=== PATIENT | female | born 1960 | race Caucasian/White ===

== ENCOUNTER 2023-03-15 08:40 | Outpatient (AMB) | payer BC, SELFPAY ==
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
== END 2023-03-15 10:28 | disposition home or self-care (01) ==
PROVIDERS: PCP Internal Medicine; Referring Provider Internal Medicine; Visit Provider Neurological Surgery
DX: M50.10 Cervical disc disorder with radiculopathy, unspecified cervical region (principal)
CPT/HCPCS: 99204

== ENCOUNTER → 2023-03-15 08:40 | Outpatient (BNVA) | payer BC, SELFPAY | PROVIDERS: PCP Internal Medicine; Visit Provider Neurological Surgery ==

== ENCOUNTER → 2023-05-17 14:35 | Outpatient (BNVA) | payer BC, SELFPAY | PROVIDERS: PCP Internal Medicine; Visit Provider Neurological Surgery ==

== ENCOUNTER 2023-07-18 06:41 | Day surgery (SDC) | payer BC, SELFPAY ==
[2023-07-13 12:19] VITALS: BP 142/87; PULSE 83; RESP 20; O2SAT 97; BMI 26.5
--- NOTE | 2023-07-13 12:31 | HO.ANESPROP2 ---
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 PPI controls Murmur as a child. Resolved spontaneously s/p anterior cervical surgery 20 years ago. No issues but severe gagging post op ~ 24 hours r/t nerve PMFSH Active Problems Active Problems: All Active Problems (Updated 07/13/23 @ 12:15 by Diya Briggs RN) Cervical radiculopathy due to intervertebral disc disorder (Acute) Past Medical History Medical History Seasonal allergies Family history of cardiovascular disease Basal cell carcinoma History of cardiac murmur as a child Cervical radiculopathy Ductal carcinoma in situ of left breast Insomnia Anxiety Depression HTN (hypertension) GERD (gastroesophageal reflux disease) Family History Family history of problems with anesthesia: No Surgical History Surgical History History of esophagogastroduodenoscopy (EGD) Hx of umbilical hernia repair Hx of hysterectomy History of meniscectomy of left knee Hx of lumbar discectomy History of lumpectomy of left breast H/O colonoscopy History of Problems with Anesthesia: No Social History Social History (Updated 07/11/23 @ 15:33 by Diya Briggs RN) Are you a primary certified caregiver to a significant other at home: No Do you presently have visiting nurse or other home services: No Patient Tobacco Use Status: Never used Tobacco Use of substances other than those prescribed or required for medical reasons: No Have you been hit, kicked, punched, or otherwise hurt by someone within the past year? If so, by whom?: No Advance Directives: No Advance Directives Information Provided: Yes Advance Directives on File: No Recently lost weight without trying: No Eating poorly because of decreased appetite: No Nutrition Risks: No Nutritional Risk Poor oral hygiene: No Meds Allergies Allergy/AdvReac Type Severity Reaction Status Date / Time ibuprofen AdvReac Intermediate due to GI Verified 07/18/23 07:17 effects-has stomach polyps Home Medications Medication Instructions Recorded Confirmed Last Taken Type albuterol sulfate 90 mcg/actuation 2 puff inhalation Q4H PRN 07/11/23 07/13/23 Unknown History aerosol inhaler Shortness Of Breath amlodipine 10 mg tablet 10 mg PO QAM 07/11/23 07/13/23 07/18/23 05:00 History magnesium oxide 500 mg tablet 500 mg PO QAM 07/11/23 07/13/23 07/17/23 History trazodone 50 mg tablet 50 mg PO BEDTIME PRN Insomnia 07/11/23 07/13/23 07/17/23 History venlafaxine 150 mg 150 mg PO QAM 07/11/23 07/13/23 07/18/23 05:00 History capsule,extended release 24 hr venlafaxine 75 mg capsule,extended 75 mg PO QAM 07/11/23 07/13/23 07/18/23 05:00 History release 24 hr calcium carbonate 500 mg-vitamin 1 tab PO DAILY 07/13/23 07/13/23 07/17/23 History D3 3.125 mcg (125 unit) tablet methocarbamol 500 mg tablet 500 mg PO DAILY PRN muscle spasms 07/13/23 07/13/23 Unknown History multivitamin 1 tab PO DAILY 07/13/23 07/13/23 07/17/23 History omeprazole 20 mg capsule,delayed 20 mg PO QAM 07/13/23 07/13/23 07/18/23 05:00 History release aspirin 81 mg tablet 81 mg PO DAILY 07/18/23 07/18/23 07/10/23 History Exam Height,Weight and Vital Signs: Height 5 ft 3.5 in Weight 68.946 kg Last Vital Signs Pulse 83 07/13/23 12:19 Resp 20 07/13/23 12:19 BP 142/87 H 07/13/23 12:19 Pulse Ox 97 07/13/23 12:19 O2 Del Method Room Air 07/13/23 12:19 Pertinent Lab Results Pertinent Lab Results: CBC and BMP 11/2022 from outside facility WNL Narrative Narrative: EKG 11/2022 NSR Airway Mallampati Class: II TM Dist: >3cm Neck ROM: Limited Heart: RRR Lungs: CTAB Assessment and Plan Assessment Anesthesia Assessment: Anesthesia Plan Discussed and PAT Visit Final Anesthetic Review Family History of Problems with Anesthesia: No History of Problems with Anesthesia: No Documented by User: Lorenzo Carr MD 07/18/23 09:50 PMFSH Past Medical History Medical History Seasonal allergies Family history of cardiovascular disease Basal cell carcinoma History of cardiac murmur as a child Cervical radiculopathy Ductal carcinoma in situ of left breast Insomnia Anxiety Depression HTN (hypertension) GERD (gastroesophageal reflux disease) Surgical History Surgical History History of esophagogastroduodenoscopy (EGD) Hx of umbilical hernia repair Hx of hysterectomy History of meniscectomy of left knee Hx of lumbar discectomy History of lumpectomy of left breast H/O colonoscopy Social History Social History (Updated 07/11/23 @ 15:33 by Diya Briggs RN) Are you a primary certified caregiver to a significant other at home: No Do you presently have visiting nurse or other home services: No Patient Tobacco Use Status: Never used Tobacco Use of substances other than those prescribed or required for medical reasons: No Have you been hit, kicked, punched, or otherwise hurt by someone within the past year? If so, by whom?: No Advance Directives: No Advance Directives Information Provided: Yes Advance Directives on File: No Recently lost weight without trying: No Eating poorly because of decreased appetite: No Nutrition Risks: No Nutritional Risk Poor oral hygiene: No Meds Allergies Allergy/AdvReac Type Severity Reaction Status Date / Time ibuprofen AdvReac Intermediate due to GI Verified 07/18/23 07:17 effects-has stomach polyps Home Medications Medication Instructions Recorded Confirmed Last Taken Type albuterol sulfate 90 mcg/actuation 2 puff inhalation Q4H PRN 07/11/23 07/13/23 Unknown History aerosol inhaler Shortness Of Breath amlodipine 10 mg tablet 10 mg PO QAM 07/11/23 07/13/23 07/18/23 05:00 History magnesium oxide 500 mg tablet 500 mg PO QAM 07/11/23 07/13/23 07/17/23 History trazodone 50 mg tablet 50 mg PO BEDTIME PRN Insomnia 07/11/23 07/13/23 07/17/23 History venlafaxine 150 mg 150 mg PO QAM 07/11/23 07/13/23 07/18/23 05:00 History capsule,extended release 24 hr venlafaxine 75 mg capsule,extended 75 mg PO QAM 07/11/23 07/13/23 07/18/23 05:00 History release 24 hr calcium carbonate 500 mg-vitamin 1 tab PO DAILY 07/13/23 07/13/23 07/17/23 History D3 3.125 mcg (125 unit) tablet methocarbamol 500 mg tablet 500 mg PO DAILY PRN muscle spasms 07/13/23 07/13/23 Unknown History multivitamin 1 tab PO DAILY 07/13/23 07/13/23 07/17/23 History omeprazole 20 mg capsule,delayed 20 mg PO QAM 07/13/23 07/13/23 07/18/23 05:00 History release aspirin 81 mg tablet 81 mg PO DAILY 07/18/23 07/18/23 07/10/23 History Assessment and Plan Final Anesthetic Review NPO: Yes ASA Class: II Final Preanesthetic Review: No Changes in Pt Med Stat, Meds/Allgs Chart Reviewed, Consent Obtained/Reviewed and Anes Risks/Benef Reviewed Patient Risk: Low Procedure Risk: Intermediate Anesthetic Plan Anesthetic Plan: GA Disposition: Standard PACU
[2023-07-18] VITALS (10 sets, daily range): BP systolic 119–136; BP diastolic 73–83; PULSE 84–95; RESP 8–23; TEMP 36.1–36.9; O2SAT 94–98; BMI 26.3
--- NOTE | ~2023-07-18 | FL_ITS ---
EXAMINATION: XR FLUOROSCOPY WITH IMAGES CLINICAL INFORMATION: C5-C6 anterior cervical discectomy with fusion COMPARISON: None available. TECHNIQUE: Fluoroscopy Supervised By: Dr. Lezama Fluoroscopy Time: 0.0 minutes. Cumulative Dose: 1.90 mGy. DAP: 0.389 Gycm2. Images: 3. FINDINGS: 3 views demonstrate ACDF at C5-C6. Also seen is an anterior plate and screws at C7-T1. No evidence of hardware complication. FL/FL guidance in OR IMPRESSION: Fluoroscopic guidance provided to Dr. Lezama for ACDF.
--- NOTE | 2023-07-18 07:00 | MHC.SHP ---
Pre-Procedural Eval Section A - 24 Hr Update-Section A only Date of Service: 07/18/23 The patient is an INPATIENT: No Changes since office visit: No Cold of Flu in the past 2 weeks, No New Medical Problems, No Changes in Medication and No Patient answered all questions The patient has been examined within 24 hours of the surgical procedure. The History & Physical has been completed within 30 days and I have reviewed it.: No Section B - Complete if H&P > 30 days Chief Complaint: Cervical disc disorder with radiculopathy, Allergies: Allergies Allergy/AdvReac Type Severity Reaction Status Date / Time ibuprofen AdvReac Intermediate due to GI Verified 07/13/23 12:14 effects-has stomach polyps Review of Systems Sugical H&P ROS: Negative: Constitution, Cardiovascular, Respiratory, Neurological, Psychiatric, Hem-Onc, Allergic/Immunologic, Gastrointestinal, Genitourinary, Musculoskeletal, Integumentary, Endocrine and Eyes/Ears/Nose/Throat Exam Surgical H&P Exam: Not Evaluated: HEENT, Not Evaluated: Heart, Not Evaluated: Lungs, Not Evaluated: Extremities, Not Evaluated: Abdomen, Not Evaluated: Skin and Not Evaluated: Neurological Plan Diagnosis/Plan: Unchanged C5-6 anterior cervical diskectomy and fusion Time Spent With Patient Time: Total time managing care of this patient today __9__ minutes.
[2023-07-18] MEDS: methocarbamoL 750 MG TABLET PO (07:26)
[2023-07-18] MEDS: Gabapentin 300 MG CAPSULE PO (07:26)
[2023-07-18] MEDS: Lactated Ringers 1,000 ML 100 ML IVCONT (07:33)
--- NOTE | 2023-07-18 12:06 | W.PM.OPN ---
Operative Note Operative Note Date of Service: 07/18/23
--- NOTE | 2023-07-18 12:13 | PM.DS ---
DS: Providers Provider Date of Service: 07/18/23 Date of discharge: 07/18/23 Primary care physician: Milind Monreal DO, MD Admitting clinician: Domenico Lezama DS: Diagnosis Discharge Diagnosis (1) Cervical radiculopathy due to intervertebral disc disorder: Status: Acute DS: Summary Time Attestation Discharge coordination time: Less than 30 minutes Quality: Safe Use of Opioids Does Pt have an Active Cancer Diagnosis on the Problem List?: No Quality: Stroke Does the patient have a stroke diagnosis?: No Physical Exam Vital Signs: Vital Signs: Last Vital Signs Temp 98.5 F 07/18/23 07:17 Pulse 95 07/18/23 07:17 Resp 16 07/18/23 07:17 BP 136/80 07/18/23 07:17 Pulse Ox 98 07/18/23 07:17 O2 Del Method Room Air 07/18/23 07:17 BMI result Body Mass Index 26.3 Discharge Plan Discharge Patient Disposition: Home, Self-Care Referrals: Milind Monreal DO, MD [Primary Care Provider] - 1 Week Discharge Medications: New docusate sodium [Colace] 100 mg capsule 100 mg PO BID Qty: 20 0RF oxycodone 5 mg tablet 5 mg PO Q4H PRN (Reason: pain) Qty: 30 0RF Rx Instructions: Partial Fill upon patient request. Continued venlafaxine 75 mg capsule,extended release 24hr 75 mg PO QAM trazodone 50 mg tablet 50 mg PO BEDTIME PRN (Reason: Insomnia) venlafaxine 150 mg capsule,extended release 24hr 150 mg PO QAM amlodipine 10 mg tablet 10 mg PO QAM magnesium oxide 500 mg Tablet 500 mg PO QAM albuterol sulfate 90 mcg/actuation HFA aerosol inhaler 2 puff inhalation Q4H PRN (Reason: Shortness Of Breath) multivitamin Tablet 1 tab PO DAILY methocarbamol 500 mg tablet 500 mg PO DAILY PRN (Reason: muscle spasms) calcium carbonate-vitamin D3 500 mg-3.125 mcg (125 unit) Tablet 1 tab PO DAILY omeprazole 20 mg Capsule,Delayed Release(Dr/Ec) 20 mg PO QAM aspirin 81 mg Tablet 81 mg PO DAILY Discharge Orders: Discharge Order (Routine); Ordered 07/18/23 Ordered By: Yonny Posada Diet: Advance to usual diet Activity on Discharge: As tolerated Activity Restrictions/Additional Instructions: After your spinal surgery we ask you to observe the following restrictions/guidelines: Activity: It is normal to feel some discomfort as you increase your activity, but that will improve with time. We ask you avoid heavy lifting or acitivities that cause pain. As a general rule, 8lbs is a safe limit for lifting right after surgery. Walk as much as you feel comfortable but not to exhaustion. You will feel extra tired the first few days after surgery. Stay well hydrated. It is OK to walk up and down stairs You may return to driving when you are off narcotics (such as vicodin, oxycodone, dilaudid, etc), and you are back to normal functional capacity. If you have any concerns please check with office before driving. Return to work is specific to each patient and each surgery, so please speak with your doctor/PA at first follow up. Please bring paperwork such as FMLA at that time if you need it filled out. Medications: For optimum pain control, it is best to start with a combination of 500 mg of Tylenol every 4 hours with 600 mg of Motrin every 8 hours, and use narcotics as needed in between for breakthrough pain. We will give you a short supply of narcotics after surgery (usually one weeks worth). If you need more please call the office but do not use more than prescribed. You will need to give our office 48 hours notice if you need narcotics refilled and we do not fill narcotics on weekends or evenings. If you are on a narcotic, it is a good idea to take a stool softener such as colace or senna to avoid constipation If you take blood thinner such as aspirin, Plavix, Coumadin, Effient, Eliquis etc for conditions such as Afib, DVT, Pulmonary embolus, coronary disease, stents etc please speak with your surgeon about specific details as to when you can resume these medications. You can resume NSAIDs on post op day 1 (eg: Motrin, Naproxen, etc). Follow up: Please call the office, , after surgery to arrange a 3 week follow up for wound check. Wound Care: You may remove your dressing on the first day after surgery. ?You may ?leave open to air. Please do not remove the steri strips underneath. they will fall off on their own in one week. IT IS NORMAL FOR THE WOUND TO OOZE OR BE BLOODY FOR A FEW DAYS AFTER SURGERY. ?IF THIS HAPPENS JUST PLACE NEW DRESSING OVER IT TO AVOID STAINING CLOTHES. You may shower on post op day # 1 We ask that you do not let the water soak the wound. If it does get wet, just towel dry lightly. Please do not scrub your incision or place any type of chemical/ointment on the wound. No tub baths, pools or jacuzzis for one month. If you have any leaking or redness from your wound, or fevers, please call office
--- NOTE | 2023-07-18 12:14 | P.OP_ITS ---
Operative Note Operative Note Date of Service: 07/18/23 Narrative: Preoperative Diagnosis: Bilateral cervical radiculopathy Procedure: C5-C6 Anterior discectomy, arthrodesis and implantation cage ; C5-C6 anterior instrumentation ; local autograft; microscope Informed Consent was obtained for this operation. I have explained the nature, purpose and benefits of the operation. I have discussed the risks and benefit of the operation including possible complications or adverse events with patient/family. Alternative(s) were discussed with the patient with their relative benefits and risks as well as the consequences of not accepting the operation were included in obtaining consent. Surgeon: PRINCE NIETO MD, PHD Procedure Assisted By: aguila Morocho Description of Procedure: This patient is radiculopathy. She has a history of C6-7 anterior diskectomy and fusion in another institution. An MRI shows degenerative disc disease C5-6 with bilateral foraminal stenosis. She was offered an anterior diskectomy fusion C5-6 to treat adjacent degenerative disc disease. The procedure complications were explained. The patient was consented. The patient was brought to the operating room and endotracheally intubated. The patient was put in supine position with slight extension of the neck. Prep and drape was done followed by timeout. A mid cervical incision was made followed by opening of the platysma. The prevertebral fascia was reached following the natural planes while the physician assistant director of residence life provided manual retraction. The prevertebral fascia was opened to expose the disc space. A spinal needle was placed in the disk space to confirm the correct level with xray. The longus colli muscles were released bilaterally and a self retaining retractor was inserted. Two Walker pins were placed in the C5 and C6 vertebral bodies and distraction was give over the i nterspace. The discectomy was completed toward the posterior annulus of the disc. The microscope was brought in. The remainder of the discectomy was completed. Significant hypertrophied posterior ligament was encountered. The posterior ligament was opened and resected to expose the underlying dura. Osteophytes were resected from the body of C5-C6 and saved for autograft. Bilateral foraminotomies were done. The endplates were prepared after which a 6 mm cage filled with autograft was inserted into the disc space. A separate attached plate was locked down with 2 x 14 mm screws as anterior inst rumentation. Final x-rays in AP and lateral projection showed a satisfactory position of the implant. The physician assistant director of residence life took over. The Walker pin was removed. Hemostasis was done. He closed the incision in 2 layers with a 3-0 Vicryl. Steri-Strips used to approximate incision. An OpSite with Tegaderm was used to cover the incision. All sponge and needle counts were correct. Patient was extubated and transported in stable is to recovery room. Anesthesia: General Estimated Blood Loss (ml): 40 mL Duration of Surgery: 60 minutes Postoperative Plan: Discharge home Complications: None
[2023-07-18] MEDS: fentaNYL citrate/PF 100 MCG/2 ML VIAL 50 MCG IVPUSH (13:01)
[2023-07-18] MEDS: oxyCODONE HCl Immed Release 5 MG TABLET PO (13:07)
--- NOTE | 2023-07-18 15:00 | PHA.MEDREC ---
Pharmacy Consult ? Medication Reconciliation Pharmacy has reviewed the medication reconciliation completed by nursing. Tammie Molina, ShannonD
== END 2023-07-18 14:05 | disposition home or self-care (01) ==
PROVIDERS: PCP Internal Medicine; Visit Provider Neurological Surgery
PROC: (CPT 22551; principal; 2023-07-18 10:10)
DX: M50.122 Cervical disc disorder at C5-C6 level with radiculopathy (principal); Z79.82 Long term (current) use of aspirin; Z79.899 Other long term (current) drug therapy; Z88.8 Allergy status to other drugs, medicaments and biological substances
CPT/HCPCS: 22551; 22853; 20936; 22845; C1713; J0131; J0690; J1100; J2250; J2405; J2704; J3010

== ENCOUNTER → 2023-07-18 06:41 | Outpatient (BNV) | payer BC, SELFPAY | PROVIDERS: PCP Internal Medicine; Visit Provider Neurological Surgery | DX: M50.122 Cervical disc disorder at C5-C6 level with radiculopathy (principal) | CPT/HCPCS: 20936; 22551; 22845; 22853; 99499 ==

== ENCOUNTER 2023-08-08 13:11 | Outpatient (AMB) | payer BC, SELFPAY ==
--- NOTE | 2023-08-08 13:14 | HO.SPINEOV ---
Intake Intake Visit Reasons: 1st post op Intake Note: Ms. Bautista is here today for 1st post op. Strike Operations Officer Required: No Allergies ibuprofen Adverse Reaction (Intermediate, Verified 07/18/23 07:17) due to GI effects-has stomach polyps Assessment & Plan Assessment & Plan (1) H/O cervical spine surgery: Code(s): Z98.890 - Other specified postprocedural states Plan Procedure: C5-C6 ACDF Agustina comes in today for her 1st postoperative visit. She reports she is very satisfied with the surgery and feels much better than she did pre-operatively. The patient reports she is up walking around and completing the majority of her ADLs. She does report that she still has quite a bit of posterior neck discomfort and some dull tenderness to her bilateral shoulders. She reports that she has good relief with acetaminophen for pain control. She inquired about postoperative return to activity instructions. We extensively discussed the stepwise approach to gradually returning to normal function. No new neurological deficits. Sensation grossly intact. Patient is able to ambulate well, rises from a seated position without difficulty. Anterior incision site is closed, well healing, with no signs of drainage. We will follow-up with the patient in 6 weeks for his 2nd postoperative visit. At that time we will get x-rays to review with the patient. Grabiel Lezama MD,PhD [facility] Coding Level of Care Code Global (11443) Diagnoses H/O cervical spine surgery Z98.890
== END 2023-08-08 13:26 | disposition home or self-care (01) ==
PROVIDERS: PCP Internal Medicine; Visit Provider Physician Assistant
DX: Z98.890 Other specified postprocedural states (principal)
CPT/HCPCS: 99024

== ENCOUNTER 2023-08-08 13:11 | Outpatient (REF) | payer BC, SELFPAY | END 2023-08-08 13:12 | disposition home or self-care (01) | LOC: HO.HOSX 13:11 | PROVIDERS: PCP Internal Medicine; Visit Provider Physician Assistant | DX: Z13.89 Encounter for screening for other disorder (principal) ==

== ENCOUNTER 2023-09-19 13:21 | Outpatient (REF) | payer BC, SELFPAY ==
--- NOTE | ~2023-09-19 | XR_ITS ---
EXAMINATION: XR CERVICAL SPINE CLINICAL INFORMATION: Postprocedural states. COMPARISON: Fluoroscopic images O.R. of 07/18/2023 for ACDF at C5-C6. MR cervical spine 04/27/2022. TECHNIQUE: 4 views of the cervical spine inclusive of flexion and extension views. FINDINGS: Instrumented anterior fusion at C6-C7 with fusion hardware at C5-C6. Advanced degenerative changes with hypertrophic change and loss of disc space height at C2-C3, C3-C4, and C4-C5. Minimal retrolisthesis of C4 on C5 with flexion and extension. XR/XR cervical spine 4V IMPRESSION: 1. Instrumented anterior fusion at C6-C7 with fusion hardware at C5-C6. 2. Advanced degenerative changes at C2-C3, C3-C4, and C4-C5.
== END 2023-09-19 13:22 | disposition home or self-care (01) ==
LOC: HO.HOSX 13:21
PROVIDERS: Visit Provider Physician Assistant
DX: Z98.890 Other specified postprocedural states (principal)
CPT/HCPCS: 72050

== ENCOUNTER 2023-09-19 13:21 | Outpatient (AMB) | payer BC, SELFPAY ==
--- NOTE | 2023-09-19 13:41 | HO.SPINEOV ---
Intake Intake Visit Reasons: 2nd post op with xrays Intake Note: Ms. Bautista is here today for 2nd post op with X-rays. Financial Recruiter Required: No Allergies ibuprofen Adverse Reaction (Intermediate, Verified 07/18/23 07:17) due to GI effects-has stomach polyps Do you need a note to return to daycare/school/sports/work: No Assessment & Plan Assessment & Plan (1) H/O cervical spine surgery: Code(s): Z98.890 - Other specified postprocedural states Plan Procedure: C5-C6 ACDF Agustina comes in today for a subsequent follow-up visit after having a C5-6 ACDF completed. She reports that the shooting pains into her bilateral arms resolved since surgery. She reports no significant concerns or complaints, other than a feeling of scratchiness in her throat which he attributes to seasonal allergies. She also states she has a little bit of tenderness in her posterior neck, but we had previously discussed that should she understands that is something that is quite common with the surgery. We reviewed her x-rays during this visit and I noted no change from fluoroscopy. No new neurological deficits. Patient is able to ambulate well, rises from a seated position without difficulty. Incision sites are closed, well healing, with no signs of drainage. There is no need for continued routine follow-up with Agustina. She may be discharged as a patient. Grabiel Lezama MD,PhD [facility] Coding Level of Care Code Global (01600) Diagnoses H/O cervical spine surgery Z98.890
== END 2023-09-19 14:07 | disposition home or self-care (01) ==
PROVIDERS: PCP Internal Medicine; Visit Provider Physician Assistant
DX: Z98.890 Other specified postprocedural states (principal)
CPT/HCPCS: 99024

== ENCOUNTER → 2023-09-19 13:21 | Outpatient (BNVA) | payer BC, SELFPAY | PROVIDERS: PCP Internal Medicine; Visit Provider Physician Assistant ==